=== PATIENT | male | born 1940 | race Hispanic/Latino ===

== ENCOUNTER 2018-12-29 11:22 | Outpatient (CLI) | payer MEDICARE ==
--- NOTE | 2018-12-29 13:15 | XRay Report ---
Chest 2 views: History: Dyspnea. Findings: Normal cardiomediastinal silhouette. Trachea is midline. No consolidation, pneumothorax or pleural effusion. Impression: No acute cardiopulmonary findings.
== END 2018-12-29 11:23 | disposition home or self-care (01) ==
LOC: SPVIMAG 11:22
PROVIDERS: ATTEND Internal Medicine
DX: R06.09 Other forms of dyspnea (principal)
CPT/HCPCS: 71046